=== PATIENT | female | born 1990 | race American Indian/Alaskan Native ===

== ENCOUNTER 2017-12-07 18:16 | Emergency (ER) | payer SELFPAY ==
--- NOTE | 2017-12-07 21:24 | Emergency Department Report ---
HPI - General Chief Complaint: Allergic Reaction Time Seen by Provider: 12/07/17 21:20 - HPI HPI: 27-year-old -[place] female comes to the emergency room plane of a rash all over her body that started today. She also reports that a sore throat started today. Patient also admits that she was recently treated for urinary tract infection from [facility] and was placed on Cipro on 2017. Patient admits to nausea denies any fever or chills no vomiting no abdominal pain she is up-to-date in all vaccines. She took Benadryl last dose 4 PM. Which she reports she takes often because of her allergies. ED Past Medical Hx - Past Medical History Hx Headaches / Migraines: Yes - Surgical History Past Surgical History?: No - Social History Smoking Status: Never Smoker Substance Use Type: None - Medications Home Medications: Home Medications Medication Instructions Recorded Confirmed Last Taken Type Butalb/Acetamin/Caff 50-325-40 1 each PO Q4H PRN #20 tablet 03/08/14 Unknown Rx [Fioricet] hydrOXYzine HCL [Atarax] 25 mg PO Q6HR PRN #20 tablet 12/07/17 Unknown Rx ED Review of Systems ROS: Stated complaint: HIVES Other details as noted in HPI Comment: All other systems reviewed and negative Constitutional: denies: chills, fever Eyes: denies: eye pain, eye discharge, vision change ENT: throat pain Gastrointestinal: nausea Skin: rash Physical Exam - Physical Exam Vital Signs: Vital Signs 12/07/17 19:47 Temperature 98.2 F Pulse Rate 79 Respiratory 16 Rate Blood Pressure 121/81 O2 Sat by Pulse 97 Oximetry General: Alert and oriented 3 nontoxic in appearance Physical Exam: GENERAL APPEARANCE: Well developed, well nourished, in no acute distress. SKIN: Inspection of the skin reveals fine rashes on back chest legs and arms neck HEENT: The sclerae were anicteric and conjunctivae were pink and moist. Extraocular movements were intact and pupils were equal, round, and reactive to light with normal accommodation. External inspection of the ears and nose showed no scars, lesions, or masses. Lips, teeth, and gums showed normal mucosa. The oral mucosa, hard and soft palate and tongue were normal. Pharynx mildly erythematous non-edematous NECK: Supple and symmetric. There was no thyroid enlargement, and no tenderness , or masses were felt. LUNGS: Auscultation of the lungs revealed normal breath sounds without any other adventitious sounds or rubs. CARDIOVASCULAR: There was a regular rate and rhythm without any murmurs, gallops , rubs. The carotid pulses were normal and 2+ bilaterally without bruits. Peripheral pulses were 2+ and symmetric. LYMPH NODES: No lymphadenopathy was appreciated in the neck, axillae or groin. NEUROLOGIC: Alert and oriented x 3. Normal affect. Gait was normal. Normal deep tendon reflexes with no pathological reflexes. Sensation to touch was normal. ED Course Vital Signs 12/07/17 19:47 Temperature 98.2 F Pulse Rate 79 Respiratory 16 Rate Blood Pressure 121/81 O2 Sat by Pulse 97 Oximetry ED Medical Decision Making - Medical Decision Making Patient's been evaluated by this provider faster. Discussed the patient was sent on a rapid strep. That comes back negative to low as patient should discontinue Cipro place her on Atarax . Critical care attestation.: If time is entered above; I have spent that time in minutes in the direct care of this critically ill patient, excluding procedure time. ED Disposition Clinical Impression: Rash and nonspecific skin eruption Disposition: [id number] TO HOME OR SELFCARE Is pt being admited?: No Does the pt Need Aspirin: No Condition: Stable Instructions: Acute Rash (ED) Additional Instructions: Please discontinue Cipro. You can take Benadryl 25 mg by mouth every 4-6 hours for rash. If symptoms persist or gets worse please follow up with her primary care provider. Prescriptions: hydrOXYzine HCL [Atarax] 25 mg PO Q6HR PRN #20 tablet PRN Reason: Itching Referrals: [facility] [Provider Group] - 3-5 Days Forms: Work/School Release Form(ED), Accompanied Note
[2017-12-07] MEDS ORDERED: ATARAX PO ONE (23:06)
[2017-12-08 01:43] VITALS: BP 122/79
== END 2017-12-07 23:09 | disposition home or self-care (01) ==
LOC: ED 18:16
DX: R21 Rash and other nonspecific skin eruption (principal); J02.9 Acute pharyngitis, unspecified; G43.909 Migraine, unspecified, not intractable, without status migrainosus; R11.0 Nausea; Z79.899 Other long term (current) drug therapy; Z88.8 Allergy status to other drugs, medicaments and biological substances
CPT/HCPCS: 87116; 87430